=== PATIENT | male | born 1950 | race Caucasian/White ===

== ENCOUNTER → 2017-06-14 | Outpatient (CLI) | payer OTHER ==
[~2017-06-14] MED LIST: AMLO10TA2 PO; AMOX1TAB64 PO; BUDE10.2 INH; CLOP75TA52 PO; EZET10TA18 PO; GLYB2.5T2 PO; GLYB5TAB3 PO; HYDR-3240 PO; HYDR25TA6 PO; LISI2.5T PO; METF10002 PO; METO50TA82 PO; ROSU20TA PO; TRIA10.8 NAS
== END | disposition home or self-care (01) ==
LOC: RAD 12:57
PROVIDERS: ATTEND Internal Medicine
DX: R20.0 Anesthesia of skin (principal); M54.2 Cervicalgia; I10 Essential (primary) hypertension; E78.1 Pure hyperglyceridemia; I25.10 Atherosclerotic heart disease of native coronary artery without angina pectoris; M25.512 Pain in left shoulder; R20.2 Paresthesia of skin; G56.03 Carpal tunnel syndrome, bilateral upper limbs
CPT/HCPCS: 72141

== ENCOUNTER 2018-06-04 08:37 | Outpatient (CLI) | payer MEDICARE ==
[~2018-06-04 08:37] MED LIST changes: -AMLO10TA2 PO; +AMLO10TA8 PO; -ROSU20TA PO; +ROSU20TA2 PO
== END 2018-06-04 23:59 | disposition home or self-care (01) ==
LOC: CARD 08:37
PROVIDERS: ATTEND Internal Medicine
DX: I49.3 Ventricular premature depolarization (principal); I10 Essential (primary) hypertension; E11.9 Type 2 diabetes mellitus without complications; I25.10 Atherosclerotic heart disease of native coronary artery without angina pectoris
CPT/HCPCS: 93017

== ENCOUNTER → 2020-03-21 | Outpatient (CLI) | payer MEDICARE ==
[~2020-03-21] MED LIST changes: +AMLO-211 PO; -AMLO10TA8 PO; -EZET10TA18 PO; +EZET10TA70 PO
== END | disposition home or self-care (01) ==
LOC: CARD 09:27
PROVIDERS: ATTEND Internal Medicine
DX: I25.89 Other forms of chronic ischemic heart disease (principal); I25.10 Atherosclerotic heart disease of native coronary artery without angina pectoris; I10 Essential (primary) hypertension; E11.65 Type 2 diabetes mellitus with hyperglycemia; E78.1 Pure hyperglyceridemia
CPT/HCPCS: 93017

== ENCOUNTER → 2020-03-25 | Outpatient (CLI) | payer MEDICARE | END | disposition home or self-care (01) | LOC: CFH 12:40 | PROVIDERS: ATTEND Internal Medicine Cardiovascular Disease | DX: I21.29 ST elevation (STEMI) myocardial infarction involving other sites (principal); R94.39 Abnormal result of other cardiovascular function study; Z95.1 Presence of aortocoronary bypass graft | CPT/HCPCS: 78452; 93017; A9502 ==

== ENCOUNTER 2020-06-24 10:52 | Outpatient (CLI) | payer MEDICARE ==
[~2020-06-24 10:52] MED LIST changes: +HYDR-2214 PO; -HYDR-3240 PO
== END 2020-06-24 23:59 | disposition home or self-care (01) ==
LOC: CFH 10:52
PROVIDERS: ATTEND Internal Medicine Cardiovascular Disease
DX: I08.2 Rheumatic disorders of both aortic and tricuspid valves (principal); I25.10 Atherosclerotic heart disease of native coronary artery without angina pectoris
CPT/HCPCS: 93306